=== PATIENT | female | born 1965 | race Caucasian/White ===

== ENCOUNTER 2020-10-07 13:45 | Outpatient (REF) | payer OTHER, SELFPAY ==
[2020-10-07 21:40] LABS: HCT 41.9 % (36.0-46.0); HGB 13.7 g/dL (11.2-15.7); MCH 29.2 pg (27.0-33.0); MCHC 32.7 % (32.0-36.0); MCV 89.3 fL (80-95); MPV 10.3 fL (8.0-11.0); Platelet Count 332 10^3/uL (130-400); RBC 4.69 10^6/uL (3.93-5.22); RDW 12.7 % (11.7-14.6); RDW-SD 41.4 fL; WBC 6.59 10^3/uL (4.4-10.8)
[2020-10-07 22:23] LABS: ALT 21 U/L (14-59); AST 17 U/L (15-37); Albumin 3.6 g/dL (3.4-5.0); Alkaline Phosphatase 54 U/L (46-116); BUN 16 mg/dL (7-18); Bilirubin, Total 1.3 mg/dL (0.2-1.0); CREATININE 0.8 mg/dL (0.55-1.02); Calcium 9.3 mg/dL (8.5-10.1); Chloride 106 mmol/L (98-107); Glucose 85 mg/dL (74-106); Potassium 4.3 mmol/L (3.5-5.1); Sodium 140 mmol/L (136-145); TSH (W/Ref FT4) 0.46 uIU/mL (0.36-3.74); Total Protein 6.9 g/dL (6.4-8.2); Vitamin B12 453 pg/mL (193-986)
[2020-10-08 04:42] LABS: Vitamin D 25 Total 51.3 ng/ml (30-100)
[2020-10-08 10:39] LABS: Calculated LDL 143 mg/dL (<100); Cholesterol 235 mg/dL (<200); HDL Cholesterol 77 mg/dL (40-60); Triglyceride 76 mg/dL (<150)
== END 2020-10-07 13:46 | disposition home or self-care (01) ==
LOC: NCHCN 13:45
PROVIDERS: PCP Nurse Practitioner; Visit Provider Nurse Practitioner
DX: N93.0 Postcoital and contact bleeding (principal); Z87.42 Personal history of other diseases of the female genital tract; Z00.00 Encounter for general adult medical examination without abnormal findings; R20.2 Paresthesia of skin; Z13.29 Encounter for screening for other suspected endocrine disorder; Z13.21 Encounter for screening for nutritional disorder; Z86.39 Personal history of other endocrine, nutritional and metabolic disease
CPT/HCPCS: 80053; 80061; 82306; 85027; 82607; 84443

== ENCOUNTER 2021-01-11 11:48 | Day surgery (SDC) | payer MEDICAID, SELFPAY ==
--- NOTE | 2021-01-11 06:33 | W.COLOREPORT ---
Date of service: 01/11/21 Time of Service: 13:08 Colonoscopy Report Date of procedure: 01/11/21 Pre-op diagnosis general: Hx of colon polyps Procedure: Colonoscopy with polypectomy Surgeon: Marisa Can Anesthesia Type: General:No Airway Complications: None Disposition: same day Indications: The patient is here for Colonoscopy pre-op. Her last screening was in 2016 and was remarkable for polyps. She has no family history of colon cancer. She has not had any bowel habit changes. -Discussed colonoscopy bowel prep as well as the procedure. Discussed possible complications of the procedure to include bleeding, pain, perforation, missed small lesion/polyp, sore throat, aspiration and adverse reaction to the medications. Questions were answered to patient?s satisfaction. No guarantees were implied or given.? Prep: Miralax/Dulcolax Procedure Start Time: 13:08 Procedure End Time: :28 Retraction Time: 10 minutes Findings: 2 small polyps Procedure Description: After informed consent was obtained the patient was taken to the procedure room and placed in a left decubitous position. Monitors were applied and a time out was done. The patients name, date of , procedure, allergies to medications and metal in their body was reviewed. The patient was then sedated. Once sedated and comfortable a rectal exam was done. External exam was normal. Internal exam revealed a normal sphincter tone and no palpable masses. The scope was then introduced and retro-flexed. No internal hemorrhoids, polyps or masses were identified on retro-flexion. The scope was then advanced to the cecum without difficulty. The ileocecal vlave and appendiceal orifice were identified. The prep was adequate. The scope was then slowly retracted over 10 minutes back into the rectum. Polyps were removed with cold forceps in the transverse and descending colon. There was no diverticulosis noted. The scope was removed and the patient was woken up and taken back to Same day surgery in stable condition. The patient tolerated the procedure well and there were no immediate complications. Follow up: The patient should follow up in 5 years unless they develop changes in bowel habits or other new gastrointestinal complaints.
--- NOTE | 2021-01-11 06:34 | W.PM.DSUDISC ---
Discharge Plan Disposition Patient Disposition: HOME Condition: Good Discharge Details Reason For Visit: Colonoscopy Attending Provider: Marisa Can Primary Care Provider: Riri Barragan Home Meds and New Rx's Prescriptions: Discontinued bisacodyl [Dulcolax (bisacodyl)] 5 mg tablet,delayed release (DR/EC) 5 mg PO ONCE Qty: 4 RF: 0 polyethylene glycol 3350 17 gram/dose powder 238 g PO ONCE Qty: 238 RF: 0 Discharge Instructions Instructions: Colorectal Polyps (DC) Additional Instructions: Findings: 2 polyps Follow up: 5 years Please call if you develop: fevers >101.5 Nausea or Vomiting Abdominal pain that is not transient Rectal bleeding that is more then a tbsp A hard abdomen and inability to pass gas DAY SURGERY UNIT POST ENDOSCOPY INSTRUCTIONS Instructions for everyone who is given Anesthesia: For your safety, please do the following for the next 24 Hours: a. Do not drive or operate dangerous equipment b. Do not drink alcohol beverages or use any recreational drugs for the first 24 hours or while taking pain medications. The medications in your body may have a reaction that can be dangerous. c. Do not make any important decisions or sign any important papers 1. Generally there are no restrictions on your activity after a day or so has gone by, but you may feel a bit fatigued for a few days. 2. After you arrive home you may have a light meal and return to a normal diet as you can tolerate it without feeling sick to your stomach. 3. After surgery, you may feel pain or discomfort. This should be only transient, but if it persists please contact your doctor. 4. If there are any questions regarding the findings of your procedure, please feel free to contact your doctor. 6. If you are unable to contact your doctor with a problem, contact the hospital at [phone]. 7. Continue all your regular medications unless directed otherwise. I understand the above instructions and have no questions. Signature of Patient or Responsible Adult Escort Date/Time Name of Responsible Adult Escort Signature of Nurse Date/Time Activity:: Activity as Tolerated Diet:: As Tolerated Discharge Orders Discharge Orders: Discharge Order (Routine); Ordered 01/11/21 Ordered By: Marisa Can
[2021-01-11 12:10] VITALS: BP 113/80; PULSE 65; RESP 16; TEMP 36.1; O2SAT 100
[2021-01-11] MEDS: Lactated Ringers 1,000 ML 80 ML IV (12:33)
--- NOTE | 2021-01-11 12:54 | W.ANESPRE ---
General Info Date of Service Date Performed: 01/11/21 Height: 5 ft 9 in Weight: 70.3 kg Body Mass Index (BMI): 22.8 Surgical Procedure: Operation Date: 01/11/21 12:35 Proposed Procedures Side Surgeon p Colonoscopy Marisa Can MD Meds Allergies and Home Medications Allergies Allergy/AdvReac Type Severity Reaction Status Date / Time erythromycin base Allergy Severe Verified 01/06/21 11:22 Current Visit Medications: Current Medications Generic Name Dose Route Start Last Admin Trade Name Freq PRN Reason Stop Dose Admin Hyoscyamine Sulfate 0.125 mg 01/11/21 06:35 Hyoscyamine 0.125 Mg Sl/Oral/Chew SL DIRECTED PRN Ringer's Solution 1,000 mls @ 80 mls/hr 01/11/21 06:00 01/11/21 12:33 IV 01/11/21 23:59 80 mls/hr INFUSION ANTHONY Administration IV Miscellaneous Supplies 1 each 01/11/21 06:00 Iv Access IV 01/11/21 23:59 DIRECTED ANTHONY Ondansetron HCl 4 mg 01/11/21 06:35 Ondansetron 4 Mg/2 Ml Vial IVP Q4H PRN PRN Nausea / Vomiting Sodium Chloride 0 ml 01/11/21 06:00 Normal Saline Flush 10 Ml Syr IV 01/11/21 23:59 PRN PRN Sodium Chloride 0 ml 01/11/21 06:00 Normal Saline 10 Ml Vial IJ 01/11/21 23:59 DIRECTED PRN Sterile Water 0 ml 01/11/21 06:00 Water,Injection,Sterile 10 Ml Vial IJ 01/11/21 23:59 DIRECTED PRN PFSH Medical History Medical History Grief reaction History of abnormal cervical Pap smear Postcoital bleeding Surgical History Surgical History History of colonoscopy (~2015) Tobacco Smoking/Tobacco Use Status: Never Alcohol Alcohol Intake: current Alcohol intake frequency: a few times a week Alcohol type: wine and hard liquor Substance Use Substance use: Never Substance use type: does not use Vital Signs and Lab Results Vital Signs Most Recent Vital Signs in EMR: Most Recent Vital Signs Temp Pulse Resp BP Pulse Ox 36.1 C L 65 16 113/80 100 01/11/21 12:10 01/11/21 12:10 01/11/21 12:10 01/11/21 12:10 01/11/21 12:10 Lab Results Blood Type / Crossmatch: No Data to Display Complete Blood Count: No Data to Display Complete Metabolic Panel: No Data to Display Liver Function Panel: No Data to Display Coagulation Panel: No Data to Display Cardiac Panel: No Data to Display Arterial Blood Gas: No Data to Display Venous Blood Gas: No Data to Display Pancreas Panel: No Data to Display Thyroid Panel: No Data to Display Infectious Disease: No Data to Display Blood Cultures: No Data to Display Toxicology Panel: No Data to Display Anesthesia Assessment and Plan Anesthesia History Personal History: No History of Anesthesia Complications Family History: No Family History of Anesthesia Complications Exercise Tolerance Exercise Tolerance: Metabolic Equivalents>4 Pertinent Negatives Pertinent Negatives: No Symptoms of GERD, No Major Cardiovascular Symptoms or Complaints, No Major Pulmonary Symptoms or Complaints and No History of CVA/TIA Cardiac & Pulmonary Exam Cardiac Exam: Normal S1/S2 Heart Sounds Pulmonary Exam: Clear Bilateral Breath Sounds Airway Exam Known Difficult Airway: No Mallampati Class: 2 Mouth Opening: Normal (> 3cm) Thyromental Distance: Greater than 3 cm Facial Hair: Full Neil Neck Range of Motion: Full ROM Neck Circumference: Normal Teeth Condition: Normal Dentition ASA Classification ASA Score: ASA 2 Emergency Case?: No NPO Status NPO Status: NPO Clears >2 hours, Solids >8 hours Anesthesia Plan Resuscitation Status: Full Code Anesthesia Technique: General Anesthesia Airway Planned: Natural Airway Monitors Used: Standard Monitors
[2021-01-11 12:57] VITALS: BMI 22.8
--- NOTE | 2021-01-11 13:20 | BOWEL_PTH ---
PATIENT: Kate Montanez LOC: [facility] U#:[id number] AGE/SX: 55/F ROOM: RE01/11/[address]: Marisa Can MD : 1965 BED: DIS: 01/11/2021 SPEC #: [id number] RECD: 01/11/21 17:47 STATUS: OBDULIO REAlisha #: [id number] VANE: 01/11/21 13:[address]: Marisa Can DEPT: Surgical Specimen RECD BY: Sara Osborn ENTERED: 01/11/21 17:47 SP TYPE: Bowel OTHR DR: Riri Barragan Tissues: 1 - BIOPSY BOWEL 2 - BIOPSY BOWEL Procedures: GROSS AND MICRO LEVEL 4 Comments: [id number]
[2021-01-11 13:32] VITALS: BP 86/53; PULSE 67; RESP 16; TEMP 36.4; O2SAT 99
--- NOTE | 2021-01-11 13:33 | W.ANESPOSTOP ---
Postoperative Evaluation Date, Time and Location Date Performed: 01/11/21 Time Performed: 13:33 Patient Location: Day Surgery Unit Vital Signs Most Recent Imported Vital Signs: Most Recent Vital Signs Temp Pulse Resp BP Pulse Ox 36.1 C L 65 16 113/80 100 01/11/21 12:10 01/11/21 12:10 01/11/21 12:10 01/11/21 12:10 01/11/21 12:10 Most Recent Manually Entered Vital Signs: Adult Blood Pressure: 86/53 Heart Rate: 67 Respirations: 16 Oxygen Saturation (%): 99 Temperature (C): 36.4 C Pain Score (0-10 Scale): 0 Pain Score Most Recent Pain Score: Most Recent Pain Score Pain Level 0 01/11/21 12:10 Assessment Mental Status: Arousable with meaningful communication Airway and Respiratory Function: Patent airway with normal (patient baseline) respiratory exam Cardiovascular Function: Hemodynamically Stable Hydration Status: Adequately Hydrated Nausea & Vomiting: No Nausea or Vomiting Pain: Pt. Denies Any Pain Peripheral Nerve Block: Patient did not receive a nerve block
[2021-01-11 13:35] VITALS: BP 86/53; PULSE 67; RESP 16; TEMPC 36.4; O2SAT 99
[2021-01-11 14:05] VITALS: BP 96/62; PULSE 55; RESP 16; TEMP 36.3; O2SAT 100
== END 2021-01-11 14:32 | disposition home or self-care (01) ==
PROVIDERS: PCP Nurse Practitioner; Visit Provider Surgery
PROC: 0DJD8ZZ Inspection of Lower Intestinal Tract, Via Natural or Artificial Opening Endoscopic (ICD-10-PCS; CPT 45378; principal; 2021-01-11 12:30)
DX: Z12.11 Encounter for screening for malignant neoplasm of colon (principal); K63.5 Polyp of colon; D12.4 Benign neoplasm of descending colon
CPT/HCPCS: 45380; 88305; J2001